=== PATIENT | male | born 1975 | race Caucasian/White ===

== ENCOUNTER 2016-11-08 12:02 | Emergency (ER) | payer SELFPAY ==
[~2016-11-08] VITALS: Ht 182.9 cm; Wt 112.4 kg
[~2016-11-08 12:02] MED LIST: CIPR500T4 PO; DYAZ37.52 PO; PERC10TA27 PO; PYRI200T4 PO; ZOFR8TAB PO
[2016-11-08 12:05] VITALS: BP 138/63; PULSE 77; RESP 16; TEMP 98; O2SAT 97
--- NOTE | 2016-11-08 12:23 | PD ---
HPI Chief Complaint: Edema Time Seen by Provider: 12:19 Travel History International Travel<30 days: No Contact w/Intl Traveler<30days: No Traveled to known affect area: No History of Present Illness HPI This patient complains of some swelling of his ankles. Duration 2 months. Severity is mild. No fever or injury. He is ambulatory. He is on his feet a lot. No alleviating factors. PFSH Past Medical History Asthma: No Blood Disorders: No Anxiety: Yes Depression: No Heart Rhythm Problems: No Cancer: No Cardiovascular Problems: Yes (HEART ATTACK X 2 IN 2010) High Cholesterol: No Chemotherapy: No Chest Pain: No Congestive Heart Failure: No COPD: No Diabetes: No Diminished Hearing: No Endocrine: No Genitourinary: Yes (STENT PLACED 03/11/13) Hiatal Hernia: No Immune Disorder: No Kidney Stones: Yes Musculoskeletal: No Neurologic: No Psychiatric: No Reproductive: No Respiratory: No Radiation Therapy: No Renal Failure: No Sleep Apnea: No Thyroid Disease: No Past Surgical History Abdominal Surgery: No AICD: No Arteriovenous Shunt: No Cardiac Surgery: Yes (CARDIAC CATH 2010) Ear Surgery: No Endocrine Surgery: No Eye Surgery: No Genitourinary Surgery: Yes (REPEAT STENT. 03-11-13 LEFT KIDNEY STENT.) Gynecologic Surgery: No Insulin Pump: No Joint Replacement: No Oral Surgery: No Pacemaker: No Thoracic Surgery: No Other Surgery: Yes (KIDNEY STENTS PLACED) Social History Alcohol Use: No Tobacco Use: No Substance Use: Yes (MARIJUANA) Allergies-Medications (Allergen,Severity, Reaction): Coded Allergies: No Known Allergies (Verified , 11/08/16) Reported Meds & Prescriptions Reported Meds & Active Scripts Active Reported Dyazide (Triamterene/HCTZ) 37.5 Mg/25 Mg Cap 1 Cap PO DAILY Cipro (Ciprofloxacin HCl) 500 Mg Tab 500 Mg PO BID Zofran Tab (Ondansetron HCl) 8 Mg Tab 8 Mg PO BID Pyridium (Phenazopyridine HCl) 200 Mg Tab 200 Mg PO TID Percocet 10/325 (Oxycodone/Acetaminophen) Tab 1 Tab PO Q6H PRN PRN PAIN Review of Systems General / Constitutional: No: Fever HENT: No: Headaches Cardiovascular: No: Chest Pain or Discomfort Respiratory: No: Cough Physical Exam Narrative GASTROINTESTINAL: Abdomen soft, non-tender, nondistended. Positive bowel sounds. No hepato-splenomegaly, or palpable masses. No guarding. SKIN: Focused skin assessment reveals no rash or ulcers. Skin is warm and dry. Palpation shows no induration or nodules. NECK: Symmetrical appearance, midline trachea. No mass or crepitus. Thyroid without enlargement, tenderness, or mass. Legs: Patient has mild symmetric edema in the ankles. It's not pitting. Data Data Last Documented VS Vital Signs Date Time Temp Pulse Resp B/P Pulse Ox O2 Delivery O2 Flow Rate FiO2 11/08/16 12:05 98.0 77 16 138/63 97 MDM Medical Decision Making Medical Screen Exam Complete: Yes Emergency Medical Condition: Yes Medical Record Reviewed: Yes Differential Diagnosis Veinous stasis, poor lymph drainage, renal failure Narrative Course I have reviewed the patient's electronic medical record. Patient's normal vital signs and benign presentation. He has mild symmetric edema of the ankles for 2 months. We had a lengthy discussion regarding what to do next. He has appointment with his family physician in 2 weeks. I don't recommend any emergent studies. Should he have significant worsening he is advised to return Diagnosis Primary Impression: Ankle swelling determined by examination Additional Instructions: Elevate legs Use low-sodium diet Consider knee-high compression stockings The patient was advised to follow up with their physician and return if they worsen. Med/Other Pt SpecificInfo: Other Disposition: 01 DISCHARGE HOME Condition: Stable Vlad Ireland MD Nov 08, 2016 12:22
== END 2016-11-08 12:35 | disposition home or self-care (01) ==
LOC: PHED 12:02
DX: R60.0 Localized edema (principal)
CPT/HCPCS: 99282